=== PATIENT | male | born 1995 | race Two or more races ===

== ENCOUNTER 2023-02-25 21:03 | Emergency (ER) | payer BC ==
[~2023-02-25] VITALS: Ht 170.2 cm; Wt 72.6 kg
[2023-02-25 22:35] LABS: HEMATOCRIT 43.2 % (39.0-48.0); HEMOGLOBIN 15.2 g/dL (13-16.00); MEAN CELL VOLUME 85.4 fL (80.0-100.00); MEAN CORPUSCULAR HGB CONC 35.2 g/dl (32.0-36.0); PLATELET COUNT 322 K/uL (150-450); RED BLOOD COUNT 5.06 M/uL (4.00-6.00); RED CELL DISTRIBUTION WIDTH 12.7 % (11.5-14.5)
[2023-02-25 22:52] LABS: ALBUMIN 4.2 gm/dL (3.4-5.0); BILIRUBIN TOTAL 1.08 mg/dL (0.3-1.2); CALCIUM 9.3 mg/dL (8.5-10.1); CREATININE SERUM 1.11 mg/dL (0.70-1.30); GFR 77.78; GLOBULINA 3.1 G/DL (2.4-3.5); POTASSIUM 3.61 mEq/L (3.5-5.1); TOTAL PROTEIN 7.3 gm/dL (6.4-8.2)
[2023-02-25] MEDS ORDERED: PEPCID AC20 MG PO (23:19)
== END 2023-02-26 00:36 | disposition home or self-care (01) ==
LOC: ER 21:03
PROVIDERS: General Practice
DX: N40.1 Benign prostatic hyperplasia with lower urinary tract symptoms (principal)